=== PATIENT | female | born 1950 | race Caucasian/White ===

== ENCOUNTER 2018-12-04 19:37 | Inpatient (IN) | payer MEDICARE, BC ==
[2018-12-04 20:21] LABS: #Eosinphils 0.1 thou/uL (0.0-0.7); #Lymphocytes 0.9 thou/uL (1.20-3.40); #Monocytes 0.7 thou/uL (0.11-0.59); #Neutrophils 9.3 thou/uL (1.40-6.50); %Basophils 0.3 % (0.0-1.0); %Eosinophils 0.7 % (0.0-10.0); %Lymphocytes 8.2 % (21.0-51.0); %Monocytes 6.4 % (0.0-10.0); %Neutrophils 84.4 % (42.0-75.0); Hemoglobin 12.1 g/dL (12.0-16.0); Mean Corpuscular HGB CONC 34.2 g/dL (32.0-36.0); Mean Corpuscular Hemoglobin 31.2 pg (27.0-31.0); Mean Corpuscular Volume 91.3 fL (78.0-98.0); Mean Platelet Volume 6.9 fL (7.4-10.4); Platelet Count 266 thou/uL (130-400); RBC Distribution Width 10.9 % (11.5-14.5); Red Blood Cell (RBC) Count 3.86 mill/uL (4.20-5.40)
[2018-12-04 20:41] LABS: ALT (SGPT) 16 U/L (8-55); AST (SGOT) 22 U/L (5-34); Albumin 4.1 g/dL (3.4-4.8); Alkaline Phosphatase 125 U/L (40-150); Anion Gap 18 mmol/L (10-20); BUN (Urea Nitrogen) 38 mg/dL (9.8-20.1); Bilirubin, Total 0.5 mg/dL (0.2-1.2); Calc. Creatinine Clearance 0 mL/min (70-130); Calcium 9.2 mg/dL (7.8-10.44); Carbon Dioxide 25 mmol/L (23-31); Chloride 88 mmol/L (98-107); Estimated GFR-MDRD 24; Globulin 2.6 g/dL (2.4-3.5); Glucose 144 mg/dL (80-115); Potassium 3.2 mmol/L (3.5-5.1); Protein, Total 6.7 g/dL (6.0-8.3); Sodium 128 mmol/L (136-145)
[2018-12-04] MEDS ORDERED: Pantoprazole 40 MG VIAL ONE ×2 (20:49→21:39)
[2018-12-04] MEDS ORDERED: Dicyclomine 20 MG TAB ONE (20:49)
[2018-12-04 21:20] LABS: INR-International Normal Ratio 0.9; PTT 28.7 SEC (22.9-36.1); Prothrombin Time 12.7 SEC (12.0-14.7)
--- NOTE | 2018-12-04 21:37 | CT ---
CT BRAIN PERFORMED WITHOUT CONTRAST ENHANCEMENT: HISTORY: Altered mental status. Fall with head injury. FINDINGS: There is mild ventricular and sulcal prominence. There is decreased attenuation of the periventricul ar white matter, consistent with chronic white matter change. No signs of intracerebral hemorrhage o r extraaxial fluid collection. The mastoid air cells and visualized sinuses are clear. IMPRESSION: No acute intracranial abnormalities. POS: HUI
--- NOTE | 2018-12-04 21:39 | CT ---
CT ABDOMEN AND PELVIS WITHOUT CONTRAST: HISTORY: Abdominal pain. FINDINGS: ABDOMEN: The lung bases are clear. The liver, spleen, and pancreas regions appear unremarkable, giv en the limitations of a noncontrast exam. The gallbladder has been removed. The right and left adrenal glands and the right and left kidneys are normal in appearance. There is no significant periaortic or mesenteric lymphadenopathy. PELVIS: The appendix is normal. The bladder is distended. There is a moderate amount of stool in t he rectosigmoid colon. Surgical clips are seen within the right side of the pelvis. IMPRESSION: 1. Small hiatal hernia. 2. Postoperative cholecystectomy change. 3. Normal appendix. 4. Moderate amount of stool within the rectosigmoid colon. POS: HUI
[2018-12-04 22:32] LABS: Bilirubin Negative (Negative); Blood, Urine Negative (Negative); Clarity CLEAR (Clear); Glucose, Urine (Dipstick) Negative (Negative); Leukocyte Negative (Negative); Nitrite Negative (Negative); Protein, Urine (Dipstick) Negative (Neg-Trace); Specific Gravity, Urine 1.012 (1.002-1.036); Urobilinogen 0.2 mg/dL (0.2-1.0); pH, Urine 7.5 (5.0-9.0)
[2018-12-04] MEDS ORDERED: Acetaminophen 325 MG TAB PO PRN (23:35)
[2018-12-04] MEDS ORDERED: Ondansetron ODT 4 MG TAB SL PRN (23:35)
[2018-12-04] MEDS ORDERED: Ondansetron PF 4 MG/2 ML Vial IVP PRN (23:35)
[2018-12-04 23:46] VITALS: BMI 24.5
[2018-12-05 02:25] LABS: Hemoglobin 11.5 g/dL (12.0-16.0)
[2018-12-05] MEDS ORDERED: Bisacodyl 10 MG SUPP PR PRN (07:12)
[2018-12-05] MEDS ORDERED: hydrALAZINE 20 MG/ML VIAL SLOW IVP PRN (07:12)
[2018-12-05] MEDS ORDERED: Ondansetron ODT 4 MG TAB PO PRN (07:12)
[2018-12-05] MEDS ORDERED: Artificial Tears 18 DROP/0.9 ML EA EYE PRN (07:12)
[2018-12-05] MEDS ORDERED: Cepastat Lozenges 1 LOZ PO PRN (07:12)
[2018-12-05] MEDS ORDERED: Eucerin (Mineral Oil/Petrolatum,White) 30 gm Jar TOP PRN (07:12)
[2018-12-05] MEDS ORDERED: Calcium Carbonate 500 MG ChewTAB PO PRN (07:12)
[2018-12-05] MEDS ORDERED: Acetaminophen 325 MG TAB PO PRN (07:12)
[2018-12-05] MEDS ORDERED: Sodium Chloride 0.65% Nasal 44 ML BOT EA NARE PRN (07:12)
[2018-12-05] MEDS ORDERED: Ondansetron PF 4 MG/2 ML Vial IVP PRN (07:12)
[2018-12-05] MEDS ORDERED: Senokot S 8.6-50 MG TAB PO PRN (07:12)
[2018-12-05] MEDS ORDERED: Bisacodyl 5 MG TAB PO PRN (07:12)
[2018-12-05] MEDS ORDERED: Diabetic Tussin 200 MG/10 ML UDCUP PO PRN (07:12)
[2018-12-05] MEDS ORDERED: Potassium Chloride 20 MEQ TAB PO SCH (07:15)
[2018-12-05] MEDS: Sodium Chloride 0.9% 1,000 ML IV SCH ×2 (08:40→18:29)
[2018-12-05] MEDS: Famotidine 20 MG TAB PO SCH (08:41)
[2018-12-05] MEDS ORDERED: Non-Formulary Item 1 EACH (Levothyroxine Sodium [Synthroid] 1 TAB) PO SCH (09:00)
[2018-12-05 10:25] LABS: Hemoglobin 10.2 g/dL (12.0-16.0)
--- NOTE | 2018-12-05 11:22 | HP ---
PRIMARY CARE PHYSICIAN: Fredy Helm MD. REASON FOR ADMISSION: GI bleed. HISTORY OF PRESENT ILLNESS: A 68-year-old female, who lives at home by herself. Normally, she is constipated and she requires MiraLAX daily basis. The patient lives alone. She has underlying mild dementia. The patient was found with diarrhea last night. It is unclear how many times the patient had diarrhea, but per report, several associated with nausea. The patient was also having very poor p.o. intake. The patient was trying herself to be in bed all the time. Her condition day-by-day gradually deteriorating. Her weight was also reduced. The patient is taking iron pill and the family member noticed black tarry stool. In the emergency room, the patient had guaiac-positive stool. Last night, when the patient's family member saw her at that time, she was also having vomiting. She did not have any fever, but she was feeling cold. She denied any abdominal discomfort. She denied any fresh blood in stool. The patient also found on the floor and she had unwitnessed fall. She did not injure anywhere. She does not have any pain anywhere in her body when I saw this patient. REVIEW OF SYSTEMS: All review of system tried to be reviewed with the patient but unable to review at this point because of dementia. Additional information: The patient's daughter is present at bedside, who provided most of the above-mentioned history. They do not live with her and they do not have any more clue about her other medical problem. The family member reported that they are in the process of transferring this patient to assisted living facility. PAST MEDICAL HISTORY: History of IA, history of TIA, seizure disorder, hypertension, unknown cancer. PAST SURGICAL HISTORY: CABG, hysterectomy, and cholecystectomy. PAST PSYCHIATRIC HISTORY: Dementia, anxiety, and depression. SOCIAL HISTORY: The patient lives at home by herself. Family member trying to send her to assisted living facility. No history of tobacco, alcohol, or illicit drug abuse. She is . FAMILY HISTORY: No family history of coronary artery disease, stroke, or cancer. ALLERGIES: PENICILLIN. CURRENT HOME MEDICATIONS: 1. Aspirin 81 mg daily. 2. Levothyroxine 137 mcg daily. 3. Zocor 20 mg p.o. at bedtime. 4. MiraLAX 17 g p.o. daily. 5. Potassium gluconate one tablet daily. 6. Calcium with vitamin D one tablet p.o. daily. 7. Iron 65 mg daily. 8. Lexapro 10 mg daily. 9. Dilantin 300 mg p.o. at bedtime. 10. Amlodipine 10 mg p.o. daily. EMERGENCY ROOM COURSE: The patient was given Protonix 40 mg, Bentyl 20 mg, IV fluid was given. PHYSICAL EXAMINATION: VITAL SIGNS: On arrival, blood pressure 172/45, pulse 74, respiratory rate 18, temperature 98.6, and saturation 100% on room air. Weight 65.3 kg. GENERAL: The patient is currently alert, awake, baseline confused. No obvious acute distress. HEENT: Head; normocephalic and atraumatic. Eyes; pupils are round, reactive to light. Extraocular muscle intact. ENT, oropharynx within normal limits. Moist mucous membranes. No oral lesion. No pharyngeal erythema. No exudate. NECK: Supple. No JVD. No thyromegaly. No carotid bruit. LUNGS: Clear to auscultation without any rhonchi or rales. CARDIAC: S1 and S2 regular. Systolic murmur noted at the aortic area as well as parasternally. No gallop. No rub. ABDOMEN: Soft, vague discomfort noted, but no peritoneal sign. No guarding. No rigidity. No distention. No organomegaly. No mass. No suprapubic tenderness. EXTREMITIES: Upper extremities, passive movement of all joints are normal. Lower extremities, no edema. Good distal pulsation. SKIN: No skin rash. HEMATOLOGICAL SYSTEM: No lymphadenopathy. PSYCHIATRIC: Normal affect. SIGNIFICANT LABORATORY DATA: CBC; WBC 11.0, hemoglobin 12.1, platelet 266, hemoglobin subsequently 11.2 and then 10.2. INR 0.9. BMP; sodium 128, potassium 3.2, chloride 88, carbon dioxide 25, BUN 38, creatinine 2.04, glucose 144, calcium 9.2. LFT; AST 22, ALT 16, alkaline phosphatase 125, albumin 4.1. Urinalysis normal. CT of abdomen and pelvis done in the emergency room showed moderate amount of stool in the rectosigmoid region, hiatal hernia, cholecystectomy, and normal appendix. CT of brain based on my review, no acute intracranial process. ASSESSMENT AND PLAN: Impression: 1. GI bleed. The patient has black tarry stool. She has drop in hemoglobin from 12.1 to 10.2. Her stool for guaiac is positive. The patient is taking aspirin on daily basis. The patient does not have any NSAIDs abuse. Currently, source of infection may be upper GI bleed versus small intestinal bleeding. Gastroenterology is consulted. She is vitals vivar stable. I am suspecting that this patient may have underlying chronic constipation and that causing her diarrhea after stool softener and probably bleeding may be related with stercoral colitis. We will defer further procedure plan to hearing therapy teacher. 2. Diarrhea. This could be pseudo diarrhea versus infectious diarrhea given leukocytosis and left shift. We will check stool for Clostridium difficile. At this point, we will hold on antibiotic therapy. 3. Acute kidney failure. The patient will be given IV fluid. The patient's family member does not have any clue about previous kidney function. We will repeat kidney function tomorrow and monitor input and output chart. Avoid nephrotoxin agent. 4. Abnormal electrolytes with hyponatremia, hypokalemia, and hypochloremia, likely due to volume depletion and poor p.o. intake. The patient is getting IV fluid and we will replace potassium chloride one time dose. 5. Dementia. The patient has baseline dementia. The patient will need PT, OT, and discharge planning. 6. Hypothyroidism. We will continue Synthroid 137 mcg p.o. daily. 7. Seizure disorder. We will continue Dilantin 300 mg p.o. at bedtime. 8. Hypertension. We will continue amlodipine 10 mg daily. 9. Anxiety and depression. Continue Lexapro 10 mg daily. 10. Dyslipidemia. Continue Zocor 20 mg p.o. at bedtime. 11. Deep venous thrombosis prophylaxis, SCD boots. GI prophylaxis, Pepcid 20 mg p.o. daily. CODE STATUS: The patient is full code. The patient's daughter is surrogate decision maker. DISPOSITION PLAN: Based on clinical course, we are expecting the patient's stay in hospital more than 2 midnights. Plan of care discussed with the patient and family member at bedside. Job ID: [id number]
[2018-12-05] MEDS ORDERED: GoLYTELY 4,000 ml Bottle PO SCH (16:00)
--- NOTE | 2018-12-05 16:19 | CON ---
DATE OF CONSULTATION: 12/05/2018 CHIEF COMPLAINT: Black stools. HISTORY OF PRESENT ILLNESS: Ms. Churchill is a 68-year-old woman who yesterday afternoon had onset of multiple black loose stools. Her daughter assisted her to the bathroom. She had a lot of lower abdominal cramping and then multiple black tar-like sticky stools. At that point, the daughter states she did not know what else to do with her because she was feeling weak and lightheaded and she called the ambulance and she was transferred to the emergency room. She has had nausea lately without significant vomiting. She has had no red bloody stools or hematemesis noted. She has lost some weight lately. Her daughter reports that she had gastric bypass surgery in the last couple years, but last December, she had some type of neurological episode either with a seizure or a stroke and she has had some decline of her cognitive function since then. She is being evaluated now for transfer to assisted living. Currently, she has no ongoing abdominal pain. No chest pain or shortness of breath. PAST MEDICAL HISTORY: Myocardial infarction, seizure, possible stroke, hypertension. She had either ovarian or endometrial cancer that the origin could not be defined at the time. She was treated with chemotherapy. PAST SURGICAL HISTORY: Coronary artery bypass graft, hysterectomy, cholecystectomy. She has had colonoscopy most recently in 08/2014. This was negative except for mild diverticulosis. SOCIAL HISTORY: No alcohol, tobacco, or drugs. She had been living at home, but she is being evaluated for assisted living now. FAMILY HISTORY: Positive for colon cancer in her mother. She had multiple second-degree relatives with colon cancer, and again, the patient had either ovarian or endometrial type cancer. ALLERGIES: PENICILLIN. MEDICATIONS: Prior to admission, aspirin, levothyroxine, atorvastatin, MiraLAX, iron, Lexapro, Dilantin, amlodipine. REVIEW OF SYSTEMS: Negative x10 systems reviewed except as stated in history of present illness. PHYSICAL EXAMINATION: VITAL SIGNS: Temperature 99.1, pulse 64, blood pressure 139/65. GENERAL: She is in no acute distress. She is awake and alert. HEENT: Her eyes have no scleral icterus. Oropharynx is clear without lesions. NECK: No cervical or supraclavicular lymphadenopathy. LUNGS: Clear to auscultation bilaterally. HEART: Regular rate and rhythm without murmur. ABDOMEN: Soft, nontender, and nondistended. Bowel sounds are present. EXTREMITIES: No lower extremity edema. RECTAL: Reveals tender external hemorrhoids without obvious fissure. She has black stool in the rectal vault. However, it is difficult to tell if this is related to iron or if this is blood. LABORATORY DATA: White blood cell count 11.0, hemoglobin is 10.2 down from 12.1 on initial presentation, platelets 266. INR 0.9. Creatinine 2.04. LFTs are normal. Albumin 4.1. IMPRESSION: 1. Gastrointestinal bleed, presenting with melena and weakness and lower abdominal cramping and multiple loose stools. 2. Anemia, apparently from acute blood loss. Again, I am not completely sure that the black stools are from bleeding. It is possible that this is from iron and that she had more of a GI infectious gastroenteritis that led to the cramping and loose stools. 3. Family history of colon cancer in her mother and multiple other second-degree relatives as well as a personal history of possible ovarian or endometrial cancer. This all raises a possibility of HNPCC that is hereditary non polyposis colon cancer. She has had colonoscopy in 2008 and 2013 that were negative for polyps. RECOMMENDATIONS: EGD and colonoscopy tomorrow. She will undergo a bowel prep with Jailene today. Job ID: [id number]
[2018-12-05] MEDS ORDERED: Simvastatin 20 MG TAB PO SCH ×2 (21:00)
[2018-12-05] MEDS ORDERED: Amlodipine 10 MG TAB PO SCH (21:00)
[2018-12-05] MEDS ORDERED: Escitalopram Oxalate 10 mg Tablet PO SCH (21:00)
[2018-12-05] MEDS: Atorvastatin Calcium 10 MG TAB PO SCH (22:36)
[2018-12-06] MEDS: Levothyroxine Sodium 25 MCG TAB PO SCH (05:08)
[2018-12-06] MEDS: Levothyroxine Sodium 112 MCG TAB PO SCH (05:08)
[2018-12-06] MEDS: Sodium Chloride 0.9% 1,000 ML IV SCH (05:13)
[2018-12-06] MEDS ORDERED: Levothyroxine 175 MCG TAB PO SCH (06:00)
[2018-12-06 06:11] LABS: #Eosinphils 0.1 thou/uL (0.0-0.7); #Lymphocytes 1.3 thou/uL (1.20-3.40); #Monocytes 0.7 thou/uL (0.11-0.59); #Neutrophils 4.5 thou/uL (1.40-6.50); %Basophils 0.7 % (0.0-1.0); %Eosinophils 2.1 % (0.0-10.0); %Lymphocytes 19.7 % (21.0-51.0); %Monocytes 10.4 % (0.0-10.0); %Neutrophils 67.1 % (42.0-75.0); Hemoglobin 9.6 g/dL (12.0-16.0); Mean Corpuscular HGB CONC 34.6 g/dL (32.0-36.0); Mean Corpuscular Hemoglobin 32.3 pg (27.0-31.0); Mean Corpuscular Volume 93.4 fL (78.0-98.0); Mean Platelet Volume 7.2 fL (7.4-10.4); Platelet Count 196 thou/uL (130-400); RBC Distribution Width 11.1 % (11.5-14.5); Red Blood Cell (RBC) Count 2.97 mill/uL (4.20-5.40); White Blood Cell (WBC) Count 6.7 thou/uL (4.8-10.8)
[2018-12-06 06:37] LABS: Anion Gap 14 mmol/L (10-20); BUN (Urea Nitrogen) 20 mg/dL (9.8-20.1); Calc. Creatinine Clearance 36 mL/min (70-130); Calcium 7.4 mg/dL (7.8-10.44); Carbon Dioxide 25 mmol/L (23-31); Chloride 101 mmol/L (98-107); Estimated GFR-MDRD 35; Glucose 79 mg/dL (80-115); Potassium 2.8 mmol/L (3.5-5.1); Sodium 137 mmol/L (136-145)
[2018-12-06] MEDS: Escitalopram Oxalate 10 mg Tablet PO SCH ×2 (07:56→12:50)
[2018-12-06] MEDS: Amlodipine 10 MG TAB PO SCH ×2 (07:56→12:50)
[2018-12-06] MEDS: Famotidine 20 MG TAB PO SCH ×2 (07:56→12:50)
[2018-12-06] MEDS: Folic Acid 1 MG TAB PO SCH ×2 (07:56→12:50)
[2018-12-06] MEDS ORDERED: Potassium Chloride 20 MEQ in Premix Bag 1 BAG IVPB SCH (08:00)
[2018-12-06 08:05] LABS: Magnesium 1.3 mg/dL (1.6-2.6)
[2018-12-06 08:09] LABS: Phosphorus 1.6 mg/dL (2.3-4.7)
[2018-12-06] MEDS ORDERED: Potassium Phosphate 15 MMOL in Sodium Chloride 0.9% 250 ML 250 ML IVPB SCH (08:30)
[2018-12-06] MEDS: 1/2 NS w/KCL 20 mEq 1,000 ML IV SCH ×2 (08:39→18:38)
--- NOTE | 2018-12-06 10:44 | PDOC.PN ---
- Subjective Encounter Start Date: 12/06/18 Encounter Start Time: 07:10 -: old records requested/rev Patient seen and examined. No new complaints. No overnight events - Objective Resuscitation Status - Order Detail: 12/05/18 07:07 Resuscitation Status Routine Resuscitation Status: FULL: Full Resuscitation MAR Reviewed: Yes Vital Signs & Weight: Vital Signs (12 hours) Temp Pulse Resp BP Pulse Ox 12/06/18 07:56 67 12/06/18 07:38 97.9 F 67 16 171/73 H 98 12/06/18 04:00 98.0 F 59 L 18 133/96 H 98 12/06/18 03:49 95 12/06/18 01:00 167/70 H 12/06/18 00:00 98.5 F 66 18 191/76 H 95 Weight Weight 143 lb 3.2 oz I&O: 12/05/18 12/06/18 12/07/18 06:59 06:59 06:59 Intake Total 2700 Balance 2700 Result Diagrams: 12/06/18 05:47 12/06/18 05:47 EKG Reviewed by me: Yes (nsr) Phys Exam - Physical Examination Constitutional: NAD HEENT: PERRLA, moist MMs, sclera anicteric Neck: no JVD, supple Respiratory: no wheezing, no rales, no rhonchi Cardiovascular: RRR, no significant murmur, no rub Gastrointestinal: soft, non-tender, no distention, positive bowel sounds Musculoskeletal: no edema, pulses present Neurological: non-focal, normal sensation, moves all 4 limbs Lymphatic: no nodes Psychiatric: normal affect, A&O x 3 Skin: no rash, normal turgor Dx/Plan (1) Abnormal blood electrolyte level Code(s): E87.8 - OTH DISORDERS OF ELECTROLYTE AND FLUID BALANCE, NEC Status: Acute (2) Acute kidney failure Status: Acute (3) Anemia due to acute blood loss Code(s): D62 - ACUTE POSTHEMORRHAGIC ANEMIA Status: Acute (4) GI bleed Code(s): K92.2 - GASTROINTESTINAL HEMORRHAGE, UNSPECIFIED Status: Acute (5) Anxiety and depression Code(s): F41.9 - ANXIETY DISORDER, UNSPECIFIED; F32.9 - MAJOR DEPRESSIVE DISORDER, SINGLE EPISODE, UNSPECIFIED Status: Chronic (6) Dementia Code(s): F03.90 - UNSPECIFIED DEMENTIA WITHOUT BEHAVIORAL DISTURBANCE Status: Chronic (7) Dyslipidemia Code(s): E78.5 - HYPERLIPIDEMIA, UNSPECIFIED Status: Chronic (8) Hypothyroidism Code(s): E03.9 - HYPOTHYROIDISM, UNSPECIFIED Status: Chronic (9) Seizure disorder Code(s): G40.909 - EPILEPSY, UNSP, NOT INTRACTABLE, WITHOUT STATUS EPILEPTICUS Status: Chronic - Plan cont current plan of care * GI recommendation noted * today EGD and colonoscopy * today will replace potassium chloride, potassium phosphate and magnesium sulfate * change IVF 1/2 NS with KCL * repeat labs tomorrow * medication reviewed as below * symptomatic treatment. Review of Systems - Review of Systems ENT: negative: Ear Pain, Ear Discharge, Nose Pain, Nose Discharge, Nose Congestion, Mouth Pain, Mouth Swelling, Throat Pain, Throat Swelling, Other Respiratory: negative: Cough, Dry, Shortness of Breath, Hemoptysis, SOB with Excertion, Pleuritic Pain, Sputum, Wheezing Cardiovascular: negative: chest pain, palpitations, orthopnea, paroxysmal nocturnal dyspnea, edema, light headedness, other Gastrointestinal: negative: Nausea, Vomiting, Abdominal Pain, Diarrhea, Constipation, Melena, Hematochezia, Other Genitourinary: negative: Dysuria, Frequency, Incontinence, Hematuria, Retention , Other Musculoskeletal: negative: Neck Pain, Shoulder Pain, Arm Pain, Back Pain, Hand Pain, Leg Pain, Foot Pain, Other Skin: negative: Rash, Lesions, Jyason, Bruising, Other - Medications/Allergies Allergies/Adverse Reactions: Allergies Allergy/AdvReac Type Severity Reaction Status Date / Time Penicillins Allergy Verified 12/04/18 23:38 Medications: Current Medications Acetaminophen (Tylenol) 650 mg PO Q4H PRN PRN Reason: Headache/Fever/Mild Pain (1-3) Amlodipine Besylate (Norvasc) 10 mg PO DAILY [facility] Last Admin: 12/06/18 07:56 Dose: Not Given Artificial Tears (Tears Naturale) 2 drop EA EYE PRN PRN PRN Reason: Dry Eyes Atorvastatin Calcium (Lipitor) 10 mg PO HS [facility] Last Admin: 12/05/18 22:36 Dose: 10 mg Bisacodyl (Dulcolax) 10 mg PO DAILYPRN PRN PRN Reason: Constipation Bisacodyl (Dulcolax) 10 mg DC DAILYPRN PRN PRN Reason: Constipation Calcium Carbonate (Tums) 1,000 mg PO Q4H PRN PRN Reason: Heartburn or Indigestion Escitalopram Oxalate (Lexapro) 10 mg PO DAILY [facility] Last Admin: 12/06/18 07:56 Dose: Not Given Famotidine (Pepcid) 20 mg PO DAILY [facility] Last Admin: 12/06/18 07:56 Dose: Not Given Folic Acid (Folvite) 1 mg PO DAILY [facility] Last Admin: 12/06/18 07:56 Dose: Not Given Guaifenesin (Robitussin Sf) 200 mg PO Q4H PRN PRN Reason: Cough Hydralazine HCl (Apresoline) 10 mg SLOW IVP Q4H PRN PRN Reason: SBP > 180 and HR < 70 Potassium Chloride/Sodium Chloride (1/2 Ns W/Kcl 20 Meq) 1,000 mls @ 100 mls/ hr IV .Q10H [facility] Last Admin: 12/06/18 08:39 Dose: 1,000 mls Potassium Phosphate 15 mmol/ (Sodium Chloride) 255 mls @ 63.75 mls/hr IVPB ONE [facility] Stop: 12/06/18 12:00 Last Admin: 12/06/18 10:21 Dose: 255 mls Magnesium Sulfate 3 gm/ Sodium (Chloride) 106 mls @ 100 mls/hr IVPB ONE [facility] Levothyroxine Sodium (Synthroid) 112 mcg PO 0600 [facility] Last Admin: 12/06/18 05:08 Dose: Not Given Levothyroxine Sodium (Synthroid) 25 mcg PO 0600 [facility] Last Admin: 12/06/18 05:08 Dose: Not Given Mineral Oil/White Petrolatum (Eucerin Cream) 0 gm TOP BIDPRN PRN PRN Reason: Dry Skin Ondansetron HCl (Zofran Odt) 4 mg PO Q6H PRN PRN Reason: Nausea/Vomiting Ondansetron HCl (Zofran) 4 mg IVP Q6H PRN PRN Reason: Nausea/Vomiting Phenytoin Sodium (Dilantin Er) 300 mg PO HS [facility] Last Admin: 12/05/18 22:36 Dose: 300 mg Senna/Docusate Sodium (Senokot S) 2 tab PO BID PRN PRN Reason: Constipation Stop: 12/12/18 07:13 Sodium Chloride ([place] Nasal [place] 0.65%) 0 ml EA NARE QIDPRN PRN PRN Reason: Nasal Congestion Throat Lozenges (Cepastat Lozenges) 1 shelley PO Q2H PRN PRN Reason: Sore Throat
[2018-12-06] MEDS ORDERED: Magnesium Sulfate 3 GM in Sodium Chloride 0.9% 100 ML IVPB SCH (10:45)
[2018-12-06] MEDS ORDERED: GoLYTELY 4,000 ml Bottle PO SCH (12:02)
[2018-12-06] MEDS ORDERED: Ondansetron HCl/PF 4 MG/2 ML Vial IVP PRN (12:08)
[2018-12-06] MEDS ORDERED: Promethazine HCl 25 MG/ML VIAL SLOW IVP PRN (12:08)
[2018-12-06] MEDS ORDERED: Promethazine HCl 25 MG/ML VIAL IM PRN (12:08)
--- NOTE | 2018-12-06 12:50 | OP ---
DATE OF PROCEDURE: 12/06/2018 PROCEDURE PERFORMED: Esophagogastroduodenoscopy with control of hemorrhage. INDICATION FOR PROCEDURE: Anemia, melena. DESCRIPTION OF PROCEDURE: After the risks and benefits of the procedure were explained to the patient including risks of bleeding, infection, perforation, reactions to anesthesia, aspiration, and/or pain, informed consent was obtained. The patient was then taken to the endoscopy suite, where deep sedation was administered via propofol and anesthesia support. Once adequate sedation was achieved, the standard gastroscope was introduced into the mouth with intubation of the esophagus, stomach, and the proximal small intestines with the findings listed below. The patient tolerated the procedure well with no immediate perioperative complications. Upon conclusion of the procedure, all equipment was removed from the patient and she was taken to PACU in satisfactory condition. FINDINGS: Esophagus: Normal-appearing mucosa was seen in the proximal, mid, and distal esophagus. A small hiatal hernia was seen in the distal esophagus without evidence of Yakov's ulcers or erosions. There was no evidence of erosions, ulcerations, mass, lesions, or active/recent bleeding seen in the section of the upper GI tract. Stomach: Multiple small clots were seen scattered throughout the stomach that were petechiae like in nature. Upon flushing the scott of the stomach in these areas, I noticed approximately 8 petechiae areas of mild oozing of blood. All 8 of these areas were actively intervened upon with argon plasma coagulation (APC) with good hemostasis achieved. This was performed in the gastric cardia, fundus, body, and along the greater curvature. Otherwise, there was normal-appearing mucosa in the gastric cardia, fundus, body, antrum, and incisura. There was one 1.5 cm patch of erythematous mucosa that was seen at the junction between the gastric body and antrum that did have a mild crater appearance in the middle, but did not exhibit overt ulceration. Biopsies were not taken of this lesion due to risks of increased bleeding. Otherwise, normal-appearing mucosa was seen in the gastric antrum and incisura. There was no evidence of erosions, ulcerations, mass, lesions. Duodenum: Normal-appearing mucosa was seen in both the duodenal bulb and second portion of the duodenum. Mild oozing of blood was seen upon passage of the gastroscope, but no overt active GI bleeding was seen. There was no evidence of ulcerations, mass, or lesions. IMPRESSION: 1. Small hiatal hernia. 2. Multiple petechiae like areas of oozing blood within the stomach, status post APC with good hemostasis achieved. 3. A 1.5 cm erythematous patch seen at the junction between the gastric body and antrum without any evidence of active/recent bleeding consistent with possible NG tube trauma. RECOMMENDATIONS: 1. Would continue to follow hemoglobin and hematocrit and transfuse as necessary to maintain a hemoglobin and hematocrit of 7/21. 2. We would continue to monitor for signs of active GI bleeding. 3. Would place the patient on a clear liquid diet today in preparation for colonoscopy tomorrow given lack of significant bleeding seen on upper endoscopy today. 4. We would continue to hold any anticoagulation until after the procedures. 5. We will continue to follow. Please call with any questions. Job ID: [id number]
[2018-12-06] MEDS ORDERED: Lidocaine 1% PF 5 ML VIAL ONE (16:58)
[2018-12-06] MEDS ORDERED: PROPOFOL 200 MG/20 ML VIAL ONE (16:58)
[2018-12-06] MEDS: Atorvastatin Calcium 10 MG TAB PO SCH (21:31)
[2018-12-07] MEDS: 1/2 NS w/KCL 20 mEq 1,000 ML IV SCH (02:34)
[2018-12-07 06:26] LABS: #Eosinphils 0.3 thou/uL (0.0-0.7); #Lymphocytes 1.5 thou/uL (1.20-3.40); #Monocytes 0.6 thou/uL (0.11-0.59); #Neutrophils 4.4 thou/uL (1.40-6.50); %Basophils 0.7 % (0.0-1.0); %Eosinophils 4.5 % (0.0-10.0); %Lymphocytes 22.1 % (21.0-51.0); %Monocytes 9.2 % (0.0-10.0); %Neutrophils 63.6 % (42.0-75.0); Hemoglobin 9.8 g/dL (12.0-16.0); Mean Corpuscular HGB CONC 34.2 g/dL (32.0-36.0); Mean Corpuscular Hemoglobin 32.1 pg (27.0-31.0); Mean Corpuscular Volume 93.8 fL (78.0-98.0); Mean Platelet Volume 7.1 fL (7.4-10.4); Platelet Count 206 thou/uL (130-400); RBC Distribution Width 11.2 % (11.5-14.5); Red Blood Cell (RBC) Count 3.04 mill/uL (4.20-5.40); White Blood Cell (WBC) Count 6.9 thou/uL (4.8-10.8)
[2018-12-07 06:40] LABS: Anion Gap 14 mmol/L (10-20); BUN (Urea Nitrogen) 10 mg/dL (9.8-20.1); Calc. Creatinine Clearance 44 mL/min (70-130); Calcium 7.1 mg/dL (7.8-10.44); Carbon Dioxide 25 mmol/L (23-31); Chloride 104 mmol/L (98-107); Estimated GFR-MDRD 44; Glucose 68 mg/dL (80-115); Magnesium 1.8 mg/dL (1.6-2.6); Potassium 3.7 mmol/L (3.5-5.1); Sodium 139 mmol/L (136-145)
[2018-12-07 06:43] LABS: Phosphorus 1.5 mg/dL (2.3-4.7)
[2018-12-07] MEDS ORDERED: Potassium Phosphate 30 MMOL in Sodium Chloride 0.9% 500 ML IVPB SCH (07:30)
[2018-12-07] MEDS: Levothyroxine Sodium 112 MCG TAB PO SCH (08:00)
[2018-12-07] MEDS: Levothyroxine Sodium 25 MCG TAB PO SCH (08:00)
--- NOTE | 2018-12-07 10:33 | PDOC.PN ---
- Subjective Encounter Start Date: 12/07/18 Encounter Start Time: 07:10 Patient seen and examined. No new complaints. No overnight events - Objective Resuscitation Status - Order Detail: 12/05/18 07:07 Resuscitation Status Routine Resuscitation Status: FULL: Full Resuscitation MAR Reviewed: Yes Vital Signs & Weight: Vital Signs (12 hours) Temp Pulse Resp BP Pulse Ox 12/07/18 07:51 98.2 F 70 16 179/74 H 95 12/07/18 04:00 98.2 F 69 18 173/72 H 98 12/07/18 00:00 97.7 F 72 18 139/56 L 97 Weight Weight 154 lb I&O: 12/06/18 12/07/18 12/08/18 06:59 06:59 06:59 Intake Total 2700 1000 1243 Balance 2700 1000 1243 Result Diagrams: 12/07/18 05:26 12/07/18 05:26 EKG Reviewed by me: Yes (nsr) Phys Exam - Physical Examination Constitutional: NAD HEENT: PERRLA, moist MMs, sclera anicteric Neck: no JVD, supple Respiratory: no wheezing, no rales, no rhonchi Cardiovascular: RRR, no significant murmur, no rub Gastrointestinal: soft, non-tender, no distention, positive bowel sounds Musculoskeletal: no edema, pulses present Neurological: non-focal, normal sensation, moves all 4 limbs Lymphatic: no nodes Psychiatric: normal affect, A&O x 3 Skin: no rash, normal turgor Dx/Plan (1) Abnormal blood electrolyte level Code(s): E87.8 - OTH DISORDERS OF ELECTROLYTE AND FLUID BALANCE, NEC Status: Acute (2) Acute kidney failure Status: Acute (3) Anemia due to acute blood loss Code(s): D62 - ACUTE POSTHEMORRHAGIC ANEMIA Status: Acute (4) GI bleed Code(s): K92.2 - GASTROINTESTINAL HEMORRHAGE, UNSPECIFIED Status: Acute (5) Anxiety and depression Code(s): F41.9 - ANXIETY DISORDER, UNSPECIFIED; F32.9 - MAJOR DEPRESSIVE DISORDER, SINGLE EPISODE, UNSPECIFIED Status: Chronic (6) Dementia Code(s): F03.90 - UNSPECIFIED DEMENTIA WITHOUT BEHAVIORAL DISTURBANCE Status: Chronic (7) Dyslipidemia Code(s): E78.5 - HYPERLIPIDEMIA, UNSPECIFIED Status: Chronic (8) Hypothyroidism Code(s): E03.9 - HYPOTHYROIDISM, UNSPECIFIED Status: Chronic (9) Seizure disorder Code(s): G40.909 - EPILEPSY, UNSP, NOT INTRACTABLE, WITHOUT STATUS EPILEPTICUS Status: Chronic - Plan cont current plan of care, plan discussed w/ family, 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 Review of Systems - Review of Systems ENT: negative: Ear Pain, Ear Discharge, Nose Pain, Nose Discharge, Nose Congestion, Mouth Pain, Mouth Swelling, Throat Pain, Throat Swelling, Other Respiratory: negative: Cough, Dry, Shortness of Breath, Hemoptysis, SOB with Excertion, Pleuritic Pain, Sputum, Wheezing Cardiovascular: negative: chest pain, palpitations, orthopnea, paroxysmal nocturnal dyspnea, edema, light headedness, other Gastrointestinal: negative: Nausea, Vomiting, Abdominal Pain, Diarrhea, Constipation, Melena, Hematochezia, Other Genitourinary: negative: Dysuria, Frequency, Incontinence, Hematuria, Retention , Other Musculoskeletal: negative: Neck Pain, Shoulder Pain, Arm Pain, Back Pain, Hand Pain, Leg Pain, Foot Pain, Other - Medications/Allergies Allergies/Adverse Reactions: Allergies Allergy/AdvReac Type Severity Reaction Status Date / Time Penicillins Allergy Verified 12/04/18 23:38 Medications: Current Medications Acetaminophen (Tylenol) 650 mg PO Q4H PRN PRN Reason: Headache/Fever/Mild Pain (1-3) Amlodipine Besylate (Norvasc) 10 mg PO DAILY [facility] Last Admin: 12/06/18 12:50 Dose: 10 mg Artificial Tears (Tears Naturale) 2 drop EA EYE PRN PRN PRN Reason: Dry Eyes Atorvastatin Calcium (Lipitor) 10 mg PO HS [facility] Last Admin: 12/06/18 21:31 Dose: 10 mg Bisacodyl (Dulcolax) 10 mg PO DAILYPRN PRN PRN Reason: Constipation Bisacodyl (Dulcolax) 10 mg MD DAILYPRN PRN PRN Reason: Constipation Calcium Carbonate (Tums) 1,000 mg PO Q4H PRN PRN Reason: Heartburn or Indigestion Calcium/Vitamin D (Caltrate 600 + Vit D) 1 tab PO BID-[facility] Escitalopram Oxalate (Lexapro) 10 mg PO DAILY [facility] Last Admin: 12/06/18 12:50 Dose: 10 mg Famotidine (Pepcid) 20 mg PO DAILY [facility] Last Admin: 12/06/18 12:50 Dose: 20 mg Folic Acid (Folvite) 1 mg PO DAILY [facility] Last Admin: 12/06/18 12:50 Dose: 1 mg Guaifenesin (Robitussin Sf) 200 mg PO Q4H PRN PRN Reason: Cough Hydralazine HCl (Apresoline) 10 mg SLOW IVP Q4H PRN PRN Reason: SBP > 180 and HR < 70 Potassium Phosphate 30 mmol/ (Sodium Chloride) 510 mls @ 83.3 mls/hr IVPB ONE [facility] Stop: 12/07/18 15:00 Last Admin: 12/07/18 08:40 Dose: 510 mls Levothyroxine Sodium (Synthroid) 112 mcg PO 0600 [facility] Last Admin: 12/07/18 08:00 Dose: Not Given Levothyroxine Sodium (Synthroid) 25 mcg PO 0600 [facility] Last Admin: 12/07/18 08:00 Dose: Not Given Mineral Oil/White Petrolatum (Eucerin Cream) 0 gm TOP BIDPRN PRN PRN Reason: Dry Skin Ondansetron HCl (Zofran Odt) 4 mg PO Q6H PRN PRN Reason: Nausea/Vomiting Ondansetron HCl (Zofran) 4 mg IVP Q6H PRN PRN Reason: Nausea/Vomiting Phenytoin Sodium (Dilantin Er) 300 mg PO HS [facility] Last Admin: 12/06/18 21:31 Dose: 300 mg Senna/Docusate Sodium (Senokot S) 2 tab PO BID PRN PRN Reason: Constipation Stop: 12/12/18 07:13 Sodium Chloride ([place] Nasal [place] 0.65%) 0 ml EA NARE QIDPRN PRN PRN Reason: Nasal Congestion Sodium Chloride (Flush - Normal Saline) 10 ml IVF Q12HR [facility] Sodium Chloride (Flush - Normal Saline) 10 ml IVF PRN PRN PRN Reason: Saline Flush Throat Lozenges (Cepastat Lozenges) 1 shelley PO Q2H PRN PRN Reason: Sore Throat
[2018-12-07] MEDS ORDERED: PROPOFOL 200 MG/20 ML VIAL ONE (12:03)
--- NOTE | 2018-12-07 15:04 | OP ---
DATE OF PROCEDURE: 12/07/2018 PROCEDURE PERFORMED: Colonoscopy with biopsy. PREMEDICATION: Given by the Anesthesiology Department. PREPROCEDURE DIAGNOSES: 1. Questionable GI bleed. 2. Anemia. POSTPROCEDURE DIAGNOSES: 1. Focal ulceration measuring approximately 1 cm in the rectal vault. 2. Otherwise, normal but very torturous colon exam. DESCRIPTION OF PROCEDURE: Written consents were obtained prior to procedure. After adequate sedation, rectal exam was performed and was normal. The endoscope was advanced to the cecum. The quality of the bowel prep was good. The sigmoid colon was extremely torturous. The cecum, appendiceal orifice, and ileocecal valve appeared normal. The ascending colon, hepatic flexure, transverse colon, splenic flexure, descending colon, sigmoid colon appeared normal. In the rectal vault, approximately 3 cm from the anal verge, an oval ulceration with inflammatory mucus exudate was noted. Biopsies were obtained. The rectal vault was very small, retroflexion could not be performed. The patient tolerated the procedure well. ASSESSMENT: Focal 1 cm ulceration in the rectal vault, status post biopsy. This ulcer does not have a typical appearance of a sacral ulcer. Examination is otherwise normal. PLAN: Await biopsy results. Job ID: [id number]
[2018-12-07] MEDS: Famotidine 20 MG TAB PO SCH (16:07)
[2018-12-07] MEDS: Folic Acid 1 MG TAB PO SCH (16:07)
[2018-12-07] MEDS: Amlodipine 10 MG TAB PO SCH (16:13)
[2018-12-07] MEDS: Escitalopram Oxalate 10 mg Tablet PO SCH (16:14)
[2018-12-07] MEDS: Calcium Carbonate + Vit D 1 TAB PO SCH (16:14)
[2018-12-07] MEDS: Atorvastatin Calcium 10 MG TAB PO SCH (21:03)
[2018-12-08] MEDS: Levothyroxine Sodium 25 MCG TAB PO SCH (06:12)
[2018-12-08] MEDS: Levothyroxine Sodium 112 MCG TAB PO SCH (06:12)
[2018-12-08 06:57] LABS: #Basophils 0.1 thou/uL (0.0-0.2); #Eosinphils 0.5 thou/uL (0.0-0.7); #Lymphocytes 1.2 thou/uL (1.20-3.40); #Monocytes 0.5 thou/uL (0.11-0.59); #Neutrophils 3.6 thou/uL (1.40-6.50); %Basophils 1.2 % (0.0-1.0); %Eosinophils 8.3 % (0.0-10.0); %Lymphocytes 21.4 % (21.0-51.0); %Monocytes 8.1 % (0.0-10.0); %Neutrophils 61.1 % (42.0-75.0); Hemoglobin 10.1 g/dL (12.0-16.0); Mean Corpuscular HGB CONC 33.9 g/dL (32.0-36.0); Mean Corpuscular Hemoglobin 32.1 pg (27.0-31.0); Mean Corpuscular Volume 94.9 fL (78.0-98.0); Mean Platelet Volume 6.7 fL (7.4-10.4); Platelet Count 228 thou/uL (130-400); RBC Distribution Width 11.2 % (11.5-14.5); Red Blood Cell (RBC) Count 3.14 mill/uL (4.20-5.40); White Blood Cell (WBC) Count 5.8 thou/uL (4.8-10.8)
[2018-12-08 08:39] VITALS: BP 197/66; TEMP 98.2
[2018-12-08] MEDS: Escitalopram Oxalate 10 mg Tablet PO SCH (09:32)
[2018-12-08] MEDS: Amlodipine 10 MG TAB PO SCH (09:32)
[2018-12-08] MEDS: Folic Acid 1 MG TAB PO SCH (09:32)
[2018-12-08] MEDS: Calcium Carbonate + Vit D 1 TAB PO SCH (09:32)
[2018-12-08] MEDS: Famotidine 20 MG TAB PO SCH (09:32)
--- NOTE | 2018-12-08 09:44 | PDOC.PN ---
- Subjective Encounter Start Date: 12/08/18 Encounter Start Time: 08:50 Patient seen and examined. No new complaints. No overnight events - Objective Resuscitation Status - Order Detail: 12/05/18 07:07 Resuscitation Status Routine Resuscitation Status: FULL: Full Resuscitation MAR Reviewed: Yes Vital Signs & Weight: Vital Signs (12 hours) Temp Pulse Resp BP BP Pulse Ox 12/08/18 09:32 65 12/08/18 07:18 98.2 F 65 14 197/66 H 96 12/08/18 05:00 66 158/84 H 12/08/18 04:07 98.3 F 62 16 171/73 H 96 12/08/18 00:22 98.4 F 62 16 182/64 H 94 L 12/08/18 00:13 64 182/64 H Weight Weight 154 lb I&O: 12/07/18 12/08/18 12/09/18 06:59 06:59 06:59 Intake Total 1000 1863 Output Total 580 Balance 1000 1283 Result Diagrams: 12/08/18 06:20 12/07/18 05:26 Phys Exam - Physical Examination Constitutional: NAD HEENT: PERRLA, moist MMs, sclera anicteric Neck: no JVD, supple Respiratory: no wheezing, no rales, no rhonchi Cardiovascular: RRR, no significant murmur, no rub Gastrointestinal: soft, non-tender, no distention, positive bowel sounds Musculoskeletal: no edema, pulses present Neurological: non-focal, normal sensation, moves all 4 limbs Lymphatic: no nodes Psychiatric: normal affect, A&O x 3 Skin: no rash, normal turgor Dx/Plan (1) Abnormal blood electrolyte level Code(s): E87.8 - OTH DISORDERS OF ELECTROLYTE AND FLUID BALANCE, NEC Status: Acute (2) Acute kidney failure Status: Acute (3) Anemia due to acute blood loss Code(s): D62 - ACUTE POSTHEMORRHAGIC ANEMIA Status: Acute (4) GI bleed Code(s): K92.2 - GASTROINTESTINAL HEMORRHAGE, UNSPECIFIED Status: Acute (5) Anxiety and depression Code(s): F41.9 - ANXIETY DISORDER, UNSPECIFIED; F32.9 - MAJOR DEPRESSIVE DISORDER, SINGLE EPISODE, UNSPECIFIED Status: Chronic (6) Dementia Code(s): F03.90 - UNSPECIFIED DEMENTIA WITHOUT BEHAVIORAL DISTURBANCE Status: Chronic (7) Dyslipidemia Code(s): E78.5 - HYPERLIPIDEMIA, UNSPECIFIED Status: Chronic (8) Hypothyroidism Code(s): E03.9 - HYPOTHYROIDISM, UNSPECIFIED Status: Chronic (9) Seizure disorder Code(s): G40.909 - EPILEPSY, UNSP, NOT INTRACTABLE, WITHOUT STATUS EPILEPTICUS Status: Chronic - Plan cont current plan of care * medication reviewed as below * symptomatic treatment * stable for discharge * see discharge jessica. Review of Systems - Review of Systems ENT: negative: Ear Pain, Ear Discharge, Nose Pain, Nose Discharge, Nose Congestion, Mouth Pain, Mouth Swelling, Throat Pain, Throat Swelling, Other Respiratory: negative: Cough, Dry, Shortness of Breath, Hemoptysis, SOB with Excertion, Pleuritic Pain, Sputum, Wheezing Cardiovascular: negative: chest pain, palpitations, orthopnea, paroxysmal nocturnal dyspnea, edema, light headedness, other Gastrointestinal: negative: Nausea, Vomiting, Abdominal Pain, Diarrhea, Constipation, Melena, Hematochezia, Other Genitourinary: negative: Dysuria, Frequency, Incontinence, Hematuria, Retention , Other Musculoskeletal: negative: Neck Pain, Shoulder Pain, Arm Pain, Back Pain, Hand Pain, Leg Pain, Foot Pain, Other - Medications/Allergies Allergies/Adverse Reactions: Allergies Allergy/AdvReac Type Severity Reaction Status Date / Time Penicillins Allergy Verified 12/04/18 23:38 Medications: Current Medications Acetaminophen (Tylenol) 650 mg PO Q4H PRN PRN Reason: Headache/Fever/Mild Pain (1-3) Last Admin: 12/08/18 00:48 Dose: 650 mg Amlodipine Besylate (Norvasc) 10 mg PO DAILY [facility] Last Admin: 12/08/18 09:32 Dose: 10 mg Artificial Tears (Tears Naturale) 2 drop EA EYE PRN PRN PRN Reason: Dry Eyes Atorvastatin Calcium (Lipitor) 10 mg PO [facility] Last Admin: 12/07/18 21:03 Dose: 10 mg Bisacodyl (Dulcolax) 10 mg PO DAILYPRN PRN PRN Reason: Constipation Bisacodyl (Dulcolax) 10 mg SD DAILYPRN PRN PRN Reason: Constipation Calcium Carbonate (Tums) 1,000 mg PO Q4H PRN PRN Reason: Heartburn or Indigestion Last Admin: 12/07/18 21:06 Dose: 1,000 mg Calcium/Vitamin D (Caltrate 600 + Vit D) 1 tab PO BID-[facility] Last Admin: 12/08/18 09:32 Dose: 1 tab Escitalopram Oxalate (Lexapro) 10 mg PO DAILY [facility] Last Admin: 12/08/18 09:32 Dose: 10 mg Famotidine (Pepcid) 20 mg PO DAILY [facility] Last Admin: 12/08/18 09:32 Dose: 20 mg Folic Acid (Folvite) 1 mg PO DAILY [facility] Last Admin: 12/08/18 09:32 Dose: 1 mg Guaifenesin (Robitussin Sf) 200 mg PO Q4H PRN PRN Reason: Cough Hydralazine HCl (Apresoline) 10 mg SLOW IVP Q4H PRN PRN Reason: SBP > 180 and HR < 70 Last Admin: 12/08/18 00:13 Dose: 10 mg Levothyroxine Sodium (Synthroid) 112 mcg PO 0600 [facility] Last Admin: 12/08/18 06:12 Dose: 112 mcg Levothyroxine Sodium (Synthroid) 25 mcg PO 0600 [facility] Last Admin: 12/08/18 06:12 Dose: 25 mcg Mineral Oil/White Petrolatum (Eucerin Cream) 0 gm TOP BIDPRN PRN PRN Reason: Dry Skin Ondansetron HCl (Zofran Odt) 4 mg PO Q6H PRN PRN Reason: Nausea/Vomiting Ondansetron HCl (Zofran) 4 mg IVP Q6H PRN PRN Reason: Nausea/Vomiting Phenytoin Sodium (Dilantin Er) 300 mg PO [facility] Last Admin: 12/07/18 21:03 Dose: 300 mg Senna/Docusate Sodium (Senokot S) 2 tab PO BID PRN PRN Reason: Constipation Stop: 12/12/18 07:13 Sodium Chloride ([place] Nasal [place] 0.65%) 0 ml EA NARE QIDPRN PRN PRN Reason: Nasal Congestion Sodium Chloride (Flush - Normal Saline) 10 ml IVF Q12HR [facility] Last Admin: 12/08/18 09:32 Dose: 10 ml Sodium Chloride (Flush - Normal Saline) 10 ml IVF PRN PRN PRN Reason: Saline Flush Throat Lozenges (Cepastat Lozenges) 1 shelley PO Q2H PRN PRN Reason: Sore Throat
--- NOTE | 2018-12-08 10:22 | DIS ---
DATE OF ADMISSION: 12/04/2018 DATE OF DISCHARGE: 12/08/2018 PRIMARY CARE PHYSICIAN: Dr. Fredy Helm. DISCHARGE DISPOSITION: Home with home health. PRIMARY DISCHARGE DIAGNOSES: 1. Acute GI bleed. 2. Rectal ulcer. 3. Abnormal blood electrolytes, corrected. 4. Acute kidney failure, resolved. 5. Anemia due to acute blood loss, improved. SECONDARY DISCHARGE DIAGNOSES: 1. Seizure disorder. 2. Hypothyroidism. 3. Dyslipidemia. 4. Dementia. 5. Anxiety. 6. Depression. PRIMARY PROCEDURE/OPERATION: EGD showed mild erythematous patch in the antrum as well as petechial lesion in stomach. Colonoscopy showed small rectal ulcer. RADIOLOGICAL INVESTIGATION: CT abdomen and pelvis. CT brain. SIGNIFICANT LABORATORY DATA: WBC 5.8, hemoglobin 10.1, and platelet 228. INR 0.9 BMP; sodium 139, potassium 3.7, BUN 10, creatinine 1.21, calcium 7.1, and magnesium 1.8. Urinalysis unremarkable. Dilantin level 10. Stool for infection workup negative. DISCHARGE MEDICATIONS: 1. Amlodipine 10 mg p.o. daily. 2. Aspirin 81 mg p.o. daily. 3. Calcium with vitamin D one tablet p.o. b.i.d. 4. Lexapro 10 mg p.o. at bedtime. 5. Synthroid 137 mcg p.o. daily. 6. Dilantin 300 mg p.o. daily. 7. MiraLAX 17 g p.o. daily. 8. Potassium gluconate one tablet daily. 9. Zocor 20 mg p.o. nightly. 10. Vitamin B12 1000 mcg p.o. daily. 11. Folic acid 1 mg p.o. daily. 12. Ferrous sulfate 325 mg p.o. daily. CONTRAINDICATION: None. CODE STATUS: Full code. 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 Smith and Dr. Tillman was following while in hospital. TEST RESULTS PENDING ON DISCHARGE: Pathology report from rectal ulcer. ALLERGIES: PENICILLIN. DISCHARGE PLAN: Posthospital, the patient will follow up with primary care physician. The patient will follow up with Dr. Mauricio as instructed. HOSPITAL COURSE: A 68-year-old female, who was admitted by Dr. Yang. Please see his H and P for further details. The patient was admitted for rectal bleed and she was also having some melenic stool. She had anemia due to acute blood loss. She was admitted to telemetry floor. She had acute kidney injury and abnormal electrolytes that was corrected with fluid replacement as well as electrolyte replacement. The patient underwent upper endoscopy as well as lower endoscopy during this admission. The patient was found with rectal ulcer and pathology report is pending. The patient also found with mild petechial lesion in stomach as well as a patch erythematous in the stomach. At this point, the patient is doing very well. We advised the patient to avoid NSAIDs and we prescribed Protonix 40 mg p.o. daily on discharge. Overall, the patient is doing very well. The patient is seen and examined at bedside today. Please see my progress note today for further detail. Home health arranged before discharge today. Job ID: [id number]
== END 2018-12-08 11:44 | disposition home health service (06) | DRG 378 ==
LOC: ERS 19:37 → 2SE 21:46 → SURG B 12-07 11:44
PROVIDERS: ADMIT Hospitalist; ATTEND Hospitalist
PROC: 0W3P8ZZ Control Bleeding in Gastrointestinal Tract, Via Natural or Artificial Opening Endoscopic (ICD-10-PCS; 2018-12-06)
PROC: 0DBP8ZX Excision of Rectum, Via Natural or Artificial Opening Endoscopic, Diagnostic (ICD-10-PCS; principal; 2018-12-07)
DX: K92.2 Gastrointestinal hemorrhage, unspecified (principal); N17.9 Acute kidney failure, unspecified; E87.1 Hypo-osmolality and hyponatremia; K62.6 Ulcer of anus and rectum; D62 Acute posthemorrhagic anemia; F03.90 Unspecified dementia, unspecified severity, without behavioral disturbance, psychotic disturbance, mood disturbance, and anxiety; I10 Essential (primary) hypertension; G40.909 Epilepsy, unspecified, not intractable, without status epilepticus; F41.9 Anxiety disorder, unspecified; F32.9 Major depressive disorder, single episode, unspecified; R19.7 Diarrhea, unspecified; E87.6 Hypokalemia; E87.8 Other disorders of electrolyte and fluid balance, not elsewhere classified; E78.5 Hyperlipidemia, unspecified; E03.9 Hypothyroidism, unspecified; K44.9 Diaphragmatic hernia without obstruction or gangrene; R23.3 Spontaneous ecchymoses; Z88.0 Allergy status to penicillin; Z79.82 Long term (current) use of aspirin; I25.2 Old myocardial infarction; Z86.73 Personal history of transient ischemic attack (TIA), and cerebral infarction without residual deficits; Z85.9 Personal history of malignant neoplasm, unspecified; Z95.1 Presence of aortocoronary bypass graft; Z90.49 Acquired absence of other specified parts of digestive tract
CPT/HCPCS: 36415; 51701; 70450; 74176; 80048; 80053; 80185; 81003; 82274; 83735; 84100; 85014; 85018; 85025; 85610; 85730; 87045; 87046; 87324; 87449; 87899; 88305; 88312; 93005; 96361; 96374; 96376; A4353; C9113; J0360; J2001; J2704; J3475; J3480; J7050